=== PATIENT | male | born 1975 | race Caucasian/White ===

== ENCOUNTER 2020-12-30 09:12 | Emergency (ER) | payer SELFPAY ==
[2020-12-30 09:27] VITALS: BP 122/92; PULSE 97; RESP 16; TEMP 37; O2SAT 99
--- NOTE | 2020-12-30 10:28 | ED.GENADULT ---
HPI - General Adult General Chief complaint: Unspecified Stated complaint: swollen left facial Time Seen by Provider: 12/30/20 10:28 Source: patient and RN notes reviewed Mode of arrival: ambulatory Limitations: no limitations History of Present Illness HPI narrative: 45-year-old male presents concern for facial infection. He reports he had a pimple-like area inside of the left nare that started to spread, causing left-sided facial swelling and tenderness. Reports he saw his primary care doctor yesterday who put him on Bactrim. Reports symptoms worsened today with swelling moving toward the eye. He reports he is taken 3 doses of Bactrim. He denies dental pain. He denies drainage from any area. He denies palpable abscess. Denies fever, body aches, chills, sweats. MD complaint: Face swelling Related Data Allergies Allergy/AdvReac Type Severity Reaction Status Date / Time No Known Allergies Allergy Mild Verified 11/11/09 07:16 Review of Systems Review of Systems: CONSTITUTIONAL: Denies malaise, chills, sweats, or fever. EYES: Denies visual changes, redness, or discharge. ENT: Denies rhinorrhea, congestion, sinus pain, otalgia or sore throat. Reports facial swelling, pain starting in left nare CARDIOVASCULAR: Denies chest pain, palpitations, or edema. RESPIRATORY: Denies cough or dyspnea. SKIN: Reports redness, swelling of the left nare MUSCULOSKELETAL: Denies myalgia. NEUROLOGIC: Denies numbness, weakness, or headache. All systems reviewed & are unremarkable except as noted in HPI and below PMFSH Comments At time of signature, agree with nursing past medical, surgical, social and family history. There is no relevant family history pertinent to the presenting complaint Exam Narrative: GENERAL: Well-appearing, well-nourished, and in no acute distress. HEAD: Normocephalic, atraumatic. EYES: PERRLA, sclera clear, and EOMI. No nystagmus. ENT: Right nares clear, turbinates pink, no rhinorrhea or epistaxis. Left nare internal and external erythematous and indurated. Mucous membranes moist. TM pearly browne with sharp light reflex bilaterally; no tragal tenderness. Oropharynx without erythema or lesions. Tonsils not enlarged and without exudate. No palpable buccal abscess, nodules. No palpable fluctuation anywhere on the face or nose, mild swelling noted to the left cheek NECK: Supple. No lymphadenopathy. CHEST: No respiratory distress. Clear to auscultation. No bony deformities, no asymmetry. Speaks in full sentences. HEART: Regular rate and rhythm. SKIN: Warm, dry, no visible rash. NEURO: Alert and oriented x3. PSYCH: Normal mood and affect Course Course Emergency Course: Patient informed to start second antibiotic, monitor symptoms if they worsen to seek care at the emergency. Patient is aware of diagnosis, understands and agrees to treatment plan. Anticipatory guidance given. Patient agrees to follow-up as directed and is aware of reasons to seek care at the emergency department. Portions of this record may have been created with voice recognition software Vital Signs Vital signs: Vital Signs Temperature 98.6 F 12/30/20 09:27 Pulse Rate 97 12/30/20 09:27 Respiratory Rate 16 12/30/20 09:27 Blood Pressure 122/92 H 12/30/20 09:27 Pulse Oximetry 99 12/30/20 09:27 Temperature 98.6 F 12/30/20 09:27 Pulse Rate 97 12/30/20 09:27 Respiratory Rate 16 12/30/20 09:27 Blood Pressure 122/92 H 12/30/20 09:27 Pulse Oximetry 99 12/30/20 09:27 Reviewed. Medical Decision Making MDM Narrative Medical decision making narrative: Exam findings show no acute concerns or changes; patient is non-toxic appearing and is in no distress. Patient is appropriate for outpatient treatment and follow-up. Differential Diagnosis Differential Diagnosis: Cellulitis, erysipelas, abscess, dental abscess, parotid duct obstruction, parotiditis Vital Signs Vital Signs: Vital Signs Temperature 98.6 F 12/30/20 09:27
== END 2020-12-30 10:42 | disposition home or self-care (01) ==
PROVIDERS: Emergency Provider Nurse Practitioner
DX: L08.9 Local infection of the skin and subcutaneous tissue, unspecified (principal)
CPT/HCPCS: 99213; G0463

== ENCOUNTER 2025-03-07 13:09 | Emergency (ER) | payer OTHER, SELFPAY ==
--- OUTSIDE RECORDS SUMMARY | 2025-03-07 13:12 | XMS_ITS | Clinical Summary ---
Author Organization [facility] Address [address] [place] [address] Phone Care Team Providers Care [facility] Former Machine Name Role Phone Ronan Webb MD Primary Care Provider + Allergies No known active allergies Medications traMADol (ULTRAM) 50 MG Tablet Take 1 Tab by mouth every 6 hours as needed for Pain. 20 Tab 0 05/21/2015 Active Social History Tobacco Use Types Packs/Day Years Used Date Smoking Tobacco: Never Alcohol Use Standard Drinks/Week Comments No 0 (1 standard drink = 0.6 oz pur e alcohol) Sex and Gender Information Value Date Recorded Sex Assigned at Not on file Legal Sex Male 12:10 AM CDT Gender Identity Not on file Sexual Orientation Not on file Last Filed Vital Signs Vital Sign Reading Time Taken Comments Blood Pressure 123/65 05/21/2015 8:40 PM [employer]CIAL LO[employer] Pulse 128 05/21/2015 8:40 PM [employer] LO[employer]LYST Temperature 36.4 C (97.5 F) 05/21/2015 8:40 PM [employer] LO[employer] A[employer]LYST Respiratory Rate 16 05/21/2015 8:40 PM [employer] LO[employer]ST Oxygen Saturation 95% 05/21/2015 8:40 PM [employer] LO[employer] A[employer]LYST Inhaled Oxygen Concentration - - Weight 100.7 kg (222 lb) 05/21/2015 8:40 PM [employer] LO[employer] A[employer]LYST Height 185.4 cm (6' 1) 05/21/2015 8:40 PM [employer] A[employer]LYST Body Mass Index 29.29 05/21/2015 8:40 PM [employer] LO[employer] ANALYST Plan of Treatment Not on file Insurance [facility] Care Teams Spring Former Machine Relationship Specialty Start Date End Date Ronan Webb MD PCP - General Family Medicine 05/21/15
[2025-03-07 13:13] VITALS: BP 153/92; PULSE 99; RESP 16; TEMP 36.6; O2SAT 97
--- NOTE | 2025-03-07 13:59 | ED.DENTAL ---
HPI - Dental/Oral General Chief complaint: Dental/Oral Stated complaint: Tooth Pain Time Seen by Provider: 03/07/25 14:00 Source: patient, RN notes reviewed and old records reviewed Mode of arrival: ambulatory Limitations: no limitations History of Present Illness HPI Narrative: 50-year-old male presents to the [facility] with complaints of right upper posterior dental pain since Monday. States he used a toothpick to try to move the tooth. Has an appointment at a dental group on Monday. swelling. Has history of root canal in the same tooth. Related Data Allergies Allergy/AdvReac Type Severity Reaction Status Date / Time No Known Allergies Allergy Mild Verified 03/07/25 13:19 Review of Systems Review of Systems: All systems reviewed & are unremarkable except as noted in HPI and below Constitutional: Constitutional: Reports no additional constitutional complaints ENT: Reports as per HPI and Reports dental pain ( Right upper posterior) Cardiovascular: Cardiovascular: Reports no additional cardiovascular complaints, Denies chest pain and Denies dyspnea Respiratory: Respiratory: Reports no additional respiratory complaints, Denies chest congestion, Denies cough and Denies dyspnea Musculoskeletal: Musculoskeletal: Reports no additional musculoskeletal complaints Integumentary/Breasts: Skin/Breast: Reports system reviewed and no additional complaints, except as docu PMFSH Comments At the time of my signature, I reviewed and agree with the nursing past medical, surgical, social, and family history. There is no relevant family history pertinent to the patient complaint. Exam Const: General: cooperative, healthy appearing, comfortable, no acute distress, well developed, alert and well nourished Nutritional Appearance: well nourished Orientation/consciousness: patient oriented x3 Limitations: no limitations HENMT: Head: normal to inspection Mouth: Yes Normal oral and palatal mucosa present, Yes lip normal, Yes tongue normal and Yes moist mucous membranes abnormal Teeth and gingiva: abnormal tooth and associated gingiva ( tooth 1., surrounding in erythema), caries and fair dentition Eyes: General: appearance normal, both eyes and all related structures Alignment and Position: alignment normal Neck: Neck: normal visual inspection, full ROM, no lymphadenopathy and no meningeal signs Chest: Chest palpation & inspection: normal inspection of the chest Resp: Effort & Inspection: normal respiratory effort and able to speak in complete sentences Cardio: Rate: regular rate Skin: General skin exam: normal color and no rashes or lesions noted Neuro: General: patient oriented x3, gait normal, moves all extremities and no meningeal signs Cognition (Neuro): normal cognition Speech: normal speech Gait exam (Neuro): Normal gait present Extrem: General: normal to inspection, full ROM, capillary refill normal and normal gait Psych: Appearance: grossly normal and well kempt Mental Status: mental status grossly normal Speech and movement: Normal speech and movement present and Clear speech present Affect: normal affect Attitude: cooperative Course Course Level of Care: Express Care Visit Vital Signs Vital signs: Vital Signs Temperature 98 F 03/07/25 13:13 Pulse Rate 99 03/07/25 13:13 Respiratory Rate 16 03/07/25 13:13 Blood Pressure 153/92 H 03/07/25 13:13 Pulse Oximetry 97 03/07/25 13:13 Oxygen Delivery Room Air 03/07/25 13:13 Temperature 98 F 03/07/25 13:13 Pulse Rate 99 03/07/25 13:13 Respiratory Rate 16 03/07/25 13:13 Blood Pressure 153/92 H 03/07/25 13:13 Pulse Oximetry 97 03/07/25 13:13 Oxygen Delivery Room Air 03/07/25 13:13 reviewed MDM MDM Narrative Medical decision making narrative: patient sitting in exam room. Patient is nontoxic, vitals are stable except blood pressure mildly elevated. Patient with dental pain since Monday. Patient has an appointment with a dental provider on Monday. Patient with reported purulent drainage, erythema, swelling to the posterior molar Right upper. Patient appropriate for outpatient treatment with antibiotic and close follow-up Discharge instructions reviewed with patient, as well as provided in writing per nursing staff. The instructions also include specific and strict return/GO TO THE ER as well as f/u information. All questions have been answered, and the patient deny any further questions with discharge and discharge plan. Some parts of this dictation were generated by voice recognition software and may contain typographical and/or grammatical inaccuracies. Differential Diagnosis Differential Diagnosis: Differential diagnostic considerations for dental issues include gingival abscess, dental caries, toothache, dental abscess, fracture of tooth, aphthous ulcer, TMJ. Discharge Plan Discharge Clinical Impression: Dental abscess Patient Disposition: Home Condition: Stable Instructions: Antibiotic Form, Dental Abscess (ED) Additional Instructions: today your blood pressure was 153/92. Follow-up with primary care provider to have this rechecked within 2 weeks Finish the entire course of antibiotics pressure teeth in use a good mouthwash 2 to 3 times a day After every time you eat be sure to use salt water rinses. Apply ice to face to help with pain. Take Tylenol alternating with Motrin as needed for pain. You can alternate every 4 hours You need to follow-up with a dental provider as soon as possible for further evaluation and treatment. Follow up with a Primary Care Provider (PCP) about medical needs. A PCP can help keep you healthy by preventive medicine and screening. Go to the ER for New or worsening symptoms. Patient Language: Maori Prescriptions: New penicillin V potassium 500 mg tablet 500 mg PO TID 7 Days Qty: 21 0RF Follow-up/Referrals: González,PAULO Dinero [Primary Care Provider] - 1 Week Referral Note: blood pressure elevated, 153/92 Clinical Impression: Dental abscess Stand Alone Forms: Work/School Release IP Time of Disposition: 14:12
== END 2025-03-07 14:17 | disposition home or self-care (01) ==
PROVIDERS: Emergency Provider Nurse Practitioner; PCP Physician Assistant
DX: K04.7 Periapical abscess without sinus (principal)
CPT/HCPCS: 99213; G0463